=== PATIENT | female | born 1960 ===

== ENCOUNTER 2024-04-19 15:07 | Outpatient (REF) | payer MEDICARE, SELFPAY ==
--- NOTE | 2024-04-19 15:13 | EMG_ITS ---
Chief complaint: Bilateral arm/hand and legs/feet numbness, does not occur at the same time, Neck pain, back pain History of right Carpal Tunnel Syndrome surgery Nondiabetic Reason for referral: Evaluate for neuropathy versus radiculopathy Referred by: Mely Caro NP Procedure done: Bilateral upper extremities and lower extremities NCS/EMG Precautions and/or limitations: None The limb temperature was monitored continuously and remained between 32-36 degrees C during the performance of the NCS. Nerve Conduction Studies Anti Sensory Summary Table ?Stim Site NR Onset (ms) Norm Onset (ms) Peak (ms) Norm Peak (ms) O-P Amp (?V) Norm O-P Amp Site1 Site2 Delta-0 (ms) Dist (cm) Jose L (m/s) Norm Jose L (m/s) Left Median Anti Sensory (2nd Digit) Wrist ? 2.2 2.9 <3.6 30.7 >10 Wrist 2nd Digit 2.2 14.0 64 Right Median Anti Sensory (2nd Digit) Wrist ? 2.0 3.3 <3.6 12.0 >10 Wrist 2nd Digit 2.0 14.0 70 Right Radial Anti Sensory (Thumb) Forearm ? 1.4 1.9 <3.1 38.9 Forearm Thumb 1.4 0.0 Left Sural Anti Sensory (Lat Mall) Calf ? 2.8 3.5 <4.0 10.8 >5.0 Calf Lat Mall 2.8 14.0 50 Right Sural Anti Sensory (Lat Mall) Calf ? 2.7 3.7 <4.0 15.3 >5.0 Calf Lat Mall 2.7 14.0 52 Left Ulnar Anti Sensory (5th Digit) Wrist ? 2.5 3.1 <3.7 20.8 >15.0 Wrist 5th Digit 2.5 14.0 56 Right Ulnar Anti Sensory (5th Digit) Wrist ? 2.2 3.0 <3.7 37.6 >15.0 Wrist 5th Digit 2.2 14.0 64 Motor Summary Table ?Stim Site NR Onset (ms) Norm Onset (ms) O-P Amp (mV) Norm O-P Amp iAmp (mV) Amp (1st) (%) Site1 Site2 Delta-0 (ms) Dist (cm) Jose L (m/s) Norm Jose L (m/s) Left Median Motor (Abd Poll Brev) Wrist ? 2.8 <3.9 9.4 >4.5 10.5 100.0 Elbow Wrist 3.6 17.5 49 >45 Elbow ? 6.4 9.1 10.2 96.8 Right Median Motor (Abd Poll Brev) Wrist ? 3.4 <3.9 7.9 >4.5 9.3 100.0 Elbow Wrist 3.4 18.0 53 >45 Elbow ? 6.8 7.3 8.8 92.4 Right Peroneal Motor (Ext Dig Brev) Ankle ? 3.9 <4.0 6.0 >2.5 7.6 100.0 Ankle Ext Dig Brev 3.9 0.0 B Fib ? 9.5 5.6 7.0 93.3 B Fib Ankle 5.6 27.0 48 >40 Poplt ? 10.2 5.6 7.0 93.3 Poplt B Fib 0.7 6.0 86 >40 Left Tibial Motor (Abd [place] Brev) Ankle ? 3.2 <5 14.9 >2.5 21.3 100.0 Ankle Abd [place] Brev 3.2 0.0 Knee ? 10.2 11.7 16.2 78.5 Knee Ankle 7.0 34.0 49 >40 Right Tibial Motor (Abd [place] Brev) Ankle ? 3.5 <5 10.4 >2.5 12.6 100.0 Ankle Abd [place] Brev 3.5 0.0 Knee ? 9.7 8.2 10.2 78.8 Knee Ankle 6.2 34.0 55 >40 Left Ulnar Motor (Abd Dig Minimi) Wrist ? 2.9 <3.0 5.8 >5 7.4 100.0 B Elbow Wrist 2.9 16.0 55 >45 B Elbow ? 5.8 5.6 7.4 96.6 A Elbow B Elbow 1.5 10.0 67 >45 A Elbow ? 7.3 5.6 7.6 96.6 Right Ulnar Motor (Abd Dig Minimi) Wrist ? 2.7 <3.0 8.3 >5 10.9 100.0 B Elbow Wrist 2.7 15.5 57 >45 B Elbow ? 5.4 7.9 10.7 95.2 A Elbow B Elbow 1.5 10.0 67 >45 A Elbow ? 6.9 7.3 10.0 88.0 EMG ?Side Muscle Nerve Root Ins Act Fibs Psw Amp Dur Poly Recrt Int Pat Comment Right 1stDorInt Ulnar C8-T1 Nml Nml Nml Nml Nml 0 Nml Complete Right FlexCarRad Median C6-7 Nml Nml Nml Nml Nml 0 Nml Complete Right Biceps Musculocut C5-6 Nml Nml Nml Nml Nml 0 Nml Complete Right Triceps Radial C6-7-8 Nml Nml Nml Nml Nml 0 Nml Complete Right Deltoid Axillary C5-6 Nml Nml Nml Nml Nml 0 Nml Complete Left 1stDorInt Ulnar C8-T1 Nml Nml Nml Nml Nml 0 Nml Complete Left FlexCarRad Median C6-7 Nml Nml Nml Nml Nml 0 Nml Complete Left Biceps Musculocut C5-6 Nml Nml Nml Nml Nml 0 Nml Complete Left Triceps Radial C6-7-8 Nml Nml Nml Nml Nml 0 Nml Complete Left Deltoid Axillary C5-6 Nml Nml Nml Nml Nml 0 Nml Complete Right AbdHallucis MedPlantar S1-2 Nml Nml Nml Nml Nml 0 Nml Complete Right AntTibialis Dp Br Peron L4-5 Nml Nml Nml Nml Nml 0 Nml Complete Right PostTibialis Tibial L5, S1 Nml Nml Nml Nml Nml 0 Nml Complete Right MedGastroc Tibial S1-2 Nml Nml Nml Nml Nml 0 Nml Complete Right VastusMed Femoral L2-4 Nml Nml Nml Nml Nml 0 Nml Complete Left AbdHallucis MedPlantar S1-2 Nml Nml Nml Nml Nml 0 Nml Complete Left AntTibialis Dp Br Peron L4-5 Nml Nml Nml Nml Nml 0 Nml Complete Left PostTibialis Tibial L5, S1 Nml Nml Nml Nml Nml 0 Nml Complete Left MedGastroc Tibial S1-2 Nml Nml Nml Nml Nml 0 Nml Complete Left VastusMed Femoral L2-4 Nml Nml Nml Nml Nml 0 Nml Complete Paraspinal EMG ?Side Muscle Nerve Root Ins Act Fibs Psw Comment Right Cervical Upper Rami Nml Nml Nml Right Cervical Mid Rami Nml Nml Nml Right Cervical Lower Rami Nml Nml Nml Left Cervical Upper Rami Nml Nml Nml Left Cervical Mid Rami Nml Nml Nml Left Cervical Lower Rami Nml Nml Nml Right Lumbar Upper Rami Nml Nml Nml Right Lumbar Mid Rami Nml Nml Nml Right Lumbar Lower Rami Nml Nml Nml Left Lumbar Upper Rami Nml Nml Nml Left Lumbar Mid Rami Nml Nml Nml Left Lumbar Lower Rami Nml Nml Nml FINDINGS: All motor and sensory nerves tested showed normal latencies, amplitudes and conduction velocities. Concentric needle EMG was performed in selected muscles of the bilateral upper and lower extremities, cervical paraspinals and lumbar paraspinals. Study revealed signs of electric abnormalities as shown in the table above. IMPRESSION: 1. This is a normal study. 2. There is no electrodiagnostic evidence for median neuropathy, ulnar neuropathy, brachial plexopathy, cervical radiculopathy, peroneal neuropathy, tibial neuropathy. lumbosacral plexopathy, lumbar radiculopathy, or peripheral neuropathy. Thank you for your kind referral. Jade Self MD, [place] Board Certified, [place] [employer] and [employer] (ABPMR) Board Certified, [place] [employer] Electrodiagnostic Medicine (ABEM) CODIN 48883 x 4 MTDD
== END 2024-04-19 15:08 | disposition home or self-care (01) ==
LOC: HO.NEURO 15:07
PROVIDERS: PCP Nurse Practitioner Family; Visit Provider Nurse Practitioner Family
DX: R20.0 Anesthesia of skin (principal)
CPT/HCPCS: 95886; 95913

== ENCOUNTER → 2024-04-19 15:13 | Outpatient (BNV) | payer MEDICARE, SELFPAY | PROVIDERS: PCP Nurse Practitioner Family; Visit Provider Physical Medicine & Rehabilitation | DX: R20.0 Anesthesia of skin (principal); R20.2 Paresthesia of skin | CPT/HCPCS: 95886; 95913 ==